=== PATIENT | female | born 1955 | race Asian ===

== ENCOUNTER 2021-07-27 11:09 | Emergency (ER) | payer MEDICAID ==
[~2021-07-27] VITALS: Ht 142.2 cm; Wt 35.0 kg
[2021-07-27 11:20] VITALS: BP 148/71
[2021-07-27] MEDS ORDERED: CARB1TAB24 PO (13:41)
[2021-07-27] MEDS ORDERED: carbidoba-levodopa 25-100mg tablet PO ONE (13:45)
[2021-07-27] MEDS ORDERED: ibuprofen tablet 400 MG TABLET PO ONE (13:45)
[2021-07-27] MEDS ORDERED: cyclobenzaprine 10mg tablet PO ONE (13:45)
== END 2021-07-27 14:15 | disposition home or self-care (01) ==
LOC: ER 11:10
DX: G20 Parkinson's disease (principal); Z79.899 Other long term (current) drug therapy
CPT/HCPCS: 99284